=== PATIENT | male | born 1970 | race Caucasian/White ===

== ENCOUNTER 2016-08-06 15:00 | Emergency (ER) ==
[2016-08-06 15:30] LABS: MANUAL DIFF NEEDED? NO
[2016-08-06 15:38] LABS: EOS# 0.09 X1000 (0.0-0.7); EOS% 1.3 % (0.0-10.0); HEMATOCRIT 44.4 % (42.0-52.0); HEMOGLOBIN 15.3 g/dL (14.0-18.0); LYMPH# 1.51 X1000 (1.2-3.4); LYMPH% 21.6 % (20.5-51.1); MCH 33.7 PG (27-31); MCHC 34.5 g/dL (33-37); MCV 97.8 FL (81-99); MONO# 0.65 X1000 (0.11-0.59); MONO% 9.3 % (1.7-9.3); MPV 9.5 FL (7.4-10.4); NEUT% 66.8 % (42.2-75.2); PLT 305 X1000 (130-400); RBC 4.54 XMIL (4.7-6.1)
[2016-08-06 15:43] LABS: INR 1.07; PROTIME 11.3 Seconds (9.2-11.7); PTT 25.3 Seconds (22.0-36.0)
--- NOTE | 2016-08-06 16:02 | Diag Imaging Result Document ---
PROCEDURE NAME: HEAD W/O CONTRAST - 08/06/2016 CT HEAD WITHOUT CONTRAST: COMPARISON: None available. FINDINGS: There is no discrete intracranial mass, mass effect, or intracranial hemorrhage. There is no evidence of hydrocephalus. There is no evidence of acute infarct given the limited sensitivity of CT versus MRI. The surrounding soft tissues and bony structures are essentially unremarkable. IMPRESSION: No evidence of acute intracranial pathology.
[2016-08-06 16:03] LABS: AGAP 10; ALBUMIN 4.3 g/dL (3.5-5.0); ALKALINE PHOSPHATASE 94 U/L (32-122); BUN 10 mg/dL (8-22); CHLORIDE 97 mmol/L (98-107); COSMO 264; GOT 14 U/L (10-34); GPT 10 U/L (10-44); POTASSIUM 3.8 mmol/L (3.5-5.1); SODIUM 132 mmol/L (136-145); TCO2 25 mmol/L (25-35); TOTAL BILIRUBIN 0.77 mg/dL (0.20-1.00)
[2016-08-06 16:04] LABS: BILIRUBIN URINE NEGATIVE (NEGATIVE); BLOOD URINE LARGE (NEGATIVE); COLOR YELLOW; GLUCOSE URINE NEGATIVE (NEGATIVE); LEUKOCYTES URINE NEGATIVE (NEGATIVE); NITRITE URINE NEGATIVE (NEGATIVE); PH URINE 5.5; PROTEIN URINE TRACE mg/dL (NEGATIVE); SP GRAVITY URINE 1.024; TURBIDITY URINE HAZY (CLEAR); URINE MICRO REVIEW NEEDED? NO; URINE SOURCE VOIDED; UROBILINOGEN URINE 2 mg/dL (NORMAL)
[2016-08-06 16:05] LABS: UR EPITHELIAL CELLS <10 /HPF (<10); URINE BACTERIA NEGATIVE /HPF; URINE RBC TNTC /HPF (<10); URINE WBC <10 /HPF (<10)
[2016-08-06 16:10] LABS: UR AMPHETAMINES QUAL NONE DETECTED (NONE DETECT); UR BARBITUATES QUAL NONE DETECTED (NONE DETECT); UR BENZODIAZEPIN QUAL NONE DETECTED (NONE DETECT); UR CANNABINOIDS QUAL NONE DETECTED (NONE DETECT); UR COCAINE QUAL NONE DETECTED (NONE DETECT); UR METHADONE QUAL NONE DETECTED (NONE DETECT); UR OPIATES QUAL NONE DETECTED (NONE DETECT); UR OXYCODONE QUAL NONE DETECTED (NONE DETECT); UR PCP QUAL NONE DETECTED (NONE DETECT)
--- NOTE | 2016-08-06 16:34 | PROVIDER DOCUMENTATION ---
HPI-Neurological Disorder - General Source: patient - History of Present Illness-Neuro Onset/Duration: reports: other (over a month) Timing: reports: still present Character of Altered Mental Status: reports: N/A Any recent trauma/injury?: reports: none Character of Deficits: reports: new weakness New weakness or altered sensation location:: reports: LUE Cognitive Baseline: alert, oriented x3 Gait Baseline: walks without assistance Associated Symptoms: reports: tingling in legs/feet Similar Symptoms Previously?: No Recently seen or treated by another doctor?: No <Luisa Catalan - Last Filed: 08/06/16 16:30> <Claudio Varma - Last Filed: 08/06/16 18:36> - General Chief Complaint: Stroke-Like Symptoms Stated Complaint: LEFTARM/ HAND DRAWING UP WITH NUMBNESS Time Seen by Provider: 08/06/16 15:45 Allergies/Adverse Reactions: Patient Allergies Allergy/AdvReac Type Severity Reaction Status Date / Time No Known Allergies Allergy Verified 11/18/14 17:01 Home Medications: Aspirin 81 mg PO DAILY 11/18/14 Clopidogrel Bisulfate [Plavix] 75 mg PO DAILY 11/18/14 - History of Present Illness-Neuro Nature of Presenting Problem: pt is a 46 yom who came to the ED with a cc of stroke like symptoms. Pt reports he has had off and on numbness of his head for a month now. Pt reports he had a stroke in 2009. pt reports his arm leroy up at 12 last night. (Luisa Catalan) Review of Systems - Adult - REVIEW OF SYSTEMS - ADULT Constitutional: denies: chills, fever, fatique Eyes: reports: no symptoms reported Ears, Nose, Mouth & Throat: denies: sinus problem, loose teeth Cardiovascular: denies: irregular heart rate, syncope Respiratory: reports: no symptoms reported Gastrointestinal: reports: no symptoms reported Genitourinary: reports: no symptoms reported Musculoskeletal: reports: muscle weakness. denies: joint pain, joint swelling Integumentary: reports: no symptoms reported Neurological: reports: numbness. denies: paresthesia, seizure, syncope Psychiatric: reports: no symptoms reported Endocrine: reports: no symptoms reported Hematologic/Lymphatic: reports: no symptoms reported Allergic/Immunologic: reports: no symptoms reported All Other Systems: Reviewed and Negative <Luisa Catalan - Last Filed: 08/06/16 16:30> Past History - Adult - PAST MEDICAL HISTORY-ADULT Review of Records: reports: Old Records Reviewed, Nursing Assessment Review Major Childhood Illnesses: reports: denies history Cardiovascular: reports: denies history Respiratory: reports: denies history Gastrointestinal: reports: denies history Obstetrical/Gynecological: reports: denies history Genitourinary: reports: denies history Musculoskeletal: reports: chronic pain (back) Neurological: reports: CVA (2010) Endocrine/Immune: reports: denies history Other Conditions: reports: denies history - PRIOR SURGERIES/PROCEDURES Surgical/Procedure History: reports: back/neck - IMMUNIZATION STATUS Childhood Immunizations: See Nurse Assessment Flu Vaccine: See Nurse Assessment - FAMILY HISTORY Family History: reviewed, not pertinent <Luisa Catalan - Last Filed: 08/06/16 16:30> Physical Exam- Neurological - Physical Exam-Neuro General Appearance: appears well, alert, no apparent distress HENMT: normocephalic/atraumatic, normal ENT inspection, TMs normal, pharynx normal Head Injury: no evidence of injury Neck: non-tender, full range of motion, supple, normal inspection Respiratory: chest non-tender, lungs clear, normal breath sounds, no pleuratic chest pain, no respiratory distress, no accessory muscle use Cardiovascular: normal peripheral pulses, regular rate, rhythm, no edema, no gallop, no JVD, no murmur Abdominal Exam: normal bowel sounds, non tender, soft, no organomegaly, no pulsatile mass Lymphatic: no adenopathy Extremity: normal range of motion, non-tender, normal gait, normal inspection, no pedal edema, no calf tenderness, normal capillary refill, pelvis stable furnace repair mechanic Exam: normal hearing, normal speech, PERRL Coordination/Gait: normal finger to nose, normal gait, negative Romberg's sign Motor/Sensory: no motor deficit, no sensory deficit, no pronator drift, negative Babinski's sign Neurologic: furnace repair mechanic II-XII nml as tested, no motor/sensory deficits Integumentary: normal color, normal turgor, warm/dry Psych/Mental Status: AL, normal mood/affect, normal thought content, normal thought process, oriented x 3 <Luisa Catalan - Last Filed: 08/06/16 16:30> Progress <Luisa Catalan - Last Filed: 08/06/16 16:30> - XRAY 1 XRAY Study: Chest XRAY Interpretation: nad - CT/MRI 1 CT Study: Head CT Results: nad <Claudio Varma - Last Filed: 08/06/16 18:36> - PLAN OF CARE/RESULTS Progress/Plan/Lab Results: Vital Signs - 24 hr 08/06/16 15:09 Temperature 97.9 F Pulse Rate 88 Respiratory 20 Rate Blood Pressure 109/63 O2 Sat by Pulse 100 Oximetry Orders Category Date Time Status Finger Stick Blood Sugar (ED) DIRECTED Care 08/06/16 15:11 Active HEAD W/O CONTRAST [CT] Stat Exams 08/06/16 15:22 Draft cxr [CHEST-2 VIEWS] [RAD] Stat Exams 08/06/16 15:24 Taken CBC WITH ELECTRONIC DIFF [HEME] Stat Lab 08/06/16 15:16 Completed COMPREHENSIVE METABOLIC PANEL [CHEM] Stat Lab 08/06/16 15:16 Completed MAGNESIUM [CHEM] Stat Lab 08/06/16 15:16 Completed PROTIME WITH INR [COAG] Stat Lab 08/06/16 15:16 Completed PTT [COAG] Stat Lab 08/06/16 15:16 Completed TROPONIN T Stat Lab 08/06/16 15:16 Completed URINALYSIS [URINALYSIS] Stat Lab 08/06/16 15:40 Ordered URINE DRUG SCREEN Stat Lab 08/06/16 13:40 Completed EKG [EKG] Stat Ther 08/06/16 15:11 Ordered Laboratory Tests 08/06/16 08/06/16 08/06/16 13:40 15:16 15:16 WBC 7.00 RBC 4.54 L Hgb 15.3 Hct 44.4 MCV 97.8 MCH 33.7 H MCHC 34.5 RDW Std Deviation 12.2 Plt Count 305 MPV 9.5 Immature Gran % (Auto) 0.0 Neut % (Auto) 66.8 Lymph % (Auto) 21.6 Emmons % (Auto) 9.3 Eos % (Auto) 1.3 Baso % (Auto) 1.0 H Immature Gran # (Auto) 0.00 Neut # (Auto) 4.68 Lymph # (Auto) 1.51 Emmons # (Auto) 0.65 H Eos # (Auto) 0.09 Baso # (Auto) 0.07 PT INR PTT (Actin FS) Sodium 132 L Potassium 3.8 Chloride 97 L Carbon Dioxide 25 Anion Gap 10 BUN 10 Creatinine 1.0 Estimated GFR/1.73 m2 > 60 BUN/Creatinine Ratio 10 Glucose 109 H Calculated Osmolality 264 Calcium 9.0 Magnesium Total Bilirubin 0.77 AST 14 ALT 10 Alkaline Phosphatase 94 Troponin T Total Protein 7.0 Albumin 4.3 Globulin 2.7 Albumin/Globulin Ratio 1.6 Urine Opiates Screen NONE DETECTED Ur Oxycodone Screen NONE DETECTED Ur Methadone, Qual NONE DETECTED Ur Barbiturates Screen NONE DETECTED Ur Phencyclidine Scrn NONE DETECTED Ur Amphetamines Screen NONE DETECTED U Benzodiazepines Scrn NONE DETECTED Urine Cocaine Screen NONE DETECTED U Cannabinoids Screen NONE DETECTED 08/06/16 08/06/16 08/06/16 15:16 15:16 15:16 WBC RBC Hgb Hct MCV MCH MCHC RDW Std Deviation Plt Count MPV Immature Gran % (Auto) Neut % (Auto) Lymph % (Auto) Emmons % (Auto) Eos % (Auto) Baso % (Auto) Immature Gran # (Auto) Neut # (Auto) Lymph # (Auto) Emmons # (Auto) Eos # (Auto) Baso # (Auto) PT 11.3 INR 1.07 PTT (Actin FS) 25.3 Sodium Potassium Chloride Carbon Dioxide Anion Gap BUN Creatinine Estimated GFR/1.73 m2 BUN/Creatinine Ratio Glucose Calculated Osmolality Calcium Magnesium 1.9 Total Bilirubin AST ALT Alkaline Phosphatase Troponin T < 0.010 Total Protein Albumin Globulin Albumin/Globulin Ratio Urine Opiates Screen Ur Oxycodone Screen Ur Methadone, Qual Ur Barbiturates Screen Ur Phencyclidine Scrn Ur Amphetamines Screen U Benzodiazepines Scrn Urine Cocaine Screen U Cannabinoids Screen (Alayna,Luisa) Pt has no symptoms at present. He is already on Plavix and has good f/u c Dr. Bishop. Discussed this case c Dr. Shah and he agrees that pt can f/u as an outpt. Will d/c home. He is in agreement. (Claudio Varma) Departure <Rosie Catalane - Last Filed: 08/06/16 16:30> - Departure Time of Disposition Order: 18:35 Certified Medical Emergency: Emergent <Claudio Varma - Last Filed: 08/06/16 18:36> - Departure DIAGNOSIS: Numbness and tingling in left upper extremity Disposition: HOME 01 Condition: Good Additional Instructions: Follow up with Dr. Bishop next week. Return to the ER for any new or worsening symptoms. ED Follow Up Instructions: You have been treated by a care provider in the Emergency Department. These instructions are being provided to you so you can have an understanding of how to care for yourself upon discharge. Upon discharge from the Emergency Department, you are responsible for making arrangements for follow-up care by a physician of your choice. Take all prescribed medications as directed. Return to the Emergency Department immediately for any new or worsening symptoms. You may call the Physician Referral phone number at [phone] to obtain a list of Physicians who are taking new patients. Referrals: Linda Bishop MD [Primary Care Provider] - Attestation - Scribe Verification/Attestation Scribe:: Luisa Catalan Acting as Scribe for:: Claudio Varma Scribe documention review:: This chart was documented by a scribe and accurately reflects the service the provider performed and the decisions made by the provider. <Luisa Catalan - Last Filed: 08/06/16 16:30> - Physician/ Mid-level Attestation Patient care was provided by Mid-level provider (PRODUCTION PLANNER SCHEDULER/PA):: Yes Mid-level provider:: Claudio Varma Mid-level documentation review:: The Mid-level provider documentation, treatment plan and medical decision making was reviewed by the physician who agrees with all treatment and medical decision making by the [facility]. <Claudio Varma - Last Filed: 08/06/16 18:36> Physician Attestation
--- NOTE | 2016-08-06 18:00 | Diag Imaging Result Document ---
PROCEDURE NAME: CHEST-2 VIEWS - 08/06/2016 PA AND LATERAL RADIOGRAPH OF THE CHEST: COMPARISON: None available. FINDINGS: There is perhaps mild linear scarring at the right mid lung zone. The lungs are clear otherwise. There is no definite pleural fluid collection. Cardiac silhouette and central vasculature are unremarkable. IMPRESSION: Questionable mild linear scarring at the right mid lung zone. No definite acute pathology.
[2016-08-06] MEDS ORDERED: NORCO-7.5 PO ONE (18:24)
[2016-08-06] MEDS ORDERED: ZOFRAN ODT PO ONE (18:24)
[2016-08-06 18:59] VITALS: BP 136/86
== END 2016-08-06 18:58 | disposition home or self-care (01) ==
LOC: ED 15:00
DX: R20.0 Anesthesia of skin (principal); R20.2 Paresthesia of skin; M62.81 Muscle weakness (generalized); Z86.73 Personal history of transient ischemic attack (TIA), and cerebral infarction without residual deficits; M54.9 Dorsalgia, unspecified; G89.29 Other chronic pain; Z79.02 Long term (current) use of antithrombotics/antiplatelets; Z79.82 Long term (current) use of aspirin
CPT/HCPCS: 70450; 71020; 80053; 81001; 83735; 84484; 85025; 85610; 85730; 93005; 99283; G0480